=== PATIENT | male | born 1955 | race Caucasian/White ===

== ENCOUNTER 2019-04-19 14:10 | Emergency (ER) | payer MEDICARE, OTHER ==
[2019-04-19] MEDS ORDERED: KETOROLAC 30 MG/ML VIAL IVP STA (14:27)
[2019-04-19] MEDS ORDERED: ONDANSETRON 4 MG/2 ML VIAL IVP STA (14:27)
--- NOTE | 2019-04-19 14:32 | ED Physician Documentation ---
PD HPI ABD PAIN - Stated complaint Stated Complaint: ABD PX - Chief complaint Chief Complaint: Abd Pain - History obtained from History obtained from: Patient - History of Present Illness Timing - onset: Other (64 yo male with H/O remote cervical spine injury with some problems with sensation with about 6 days feeling "ooky" in low abdomen. Feels like there should be pain but can't describe it. Seen at an UC yesterday and told to come to ED for likely diverticulitis.) Review of Systems Ten Systems: 10 systems reviewed and negative Constitutional: denies: Fever, Chills Cardiac: denies: Chest pain / pressure, Palpitations Respiratory: denies: Dyspnea, Cough GI: reports: Abdominal Pain, Nausea. denies: Vomiting PD PAST MEDICAL HISTORY - Present Medications Home Medications: Ambulatory Orders Medication Instructions Recorded Confirmed Ciprofloxacin HCl [Cipro] 500 mg PO BID #20 tablet 04/19/19 Hydrocodone/Acetaminophen 1 - 2 each PO Q6H PRN #14 tablet 04/19/19 [Hydrocodon-Acetaminophen 5-325] Metronidazole [Flagyl] 500 mg PO TID #30 tablet 04/19/19 - Allergies Allergies/Adverse Reactions: Allergies Allergy/AdvReac Type Severity Reaction Status Date / Time No Known Drug Allergies Allergy Verified 04/19/19 14:16 PD ED PE NORMAL - Vitals Vital signs reviewed: Yes - General General: Alert and oriented X 3, No acute distress - HEENT HEENT: PERRL, EOMI - Neck Neck: Supple, no meningeal sign, No bony TTP, No bruit - Cardiac Cardiac: RRR, No murmur - Respiratory Respiratory: No respiratory distress, Clear bilaterally - Abdomen Abdomen: Other (TTP Low abd without surgical signs) - Back Back: No CVA TTP, No spinal TTP - Derm Derm: Normal color, Warm and dry - Neuro Neuro: Alert and oriented X 3, Normal speech - Psych Psych: Normal mood, Normal affect Results - Vitals Vitals: Vital Signs - 24 hr 04/19/19 14:13 Temperature 36.4 C L Heart Rate 70 Respiratory 18 Rate Blood Pressure 101/60 O2 Saturation 96 Oxygen O2 Source Room air - Labs Labs: Laboratory Tests 04/19/19 04/19/19 14:40 14:40 WBC 6.3 RBC 4.96 Hgb 16.1 Hct 48.6 MCV 98.0 H MCH 32.5 H MCHC 33.1 RDW 12.1 Plt Count 184 MPV 10.8 Neut # (Auto) 2.8 Lymph # (Auto) 2.8 [place] # (Auto) 0.5 Eos # (Auto) 0.1 Baso # (Auto) 0.1 Absolute Nucleated RBC 0.00 Nucleated RBC % 0.0 Sodium 139 Potassium 4.1 Chloride 101 Carbon Dioxide 27 Anion Gap 11.0 BUN 13 Creatinine 0.9 Estimated GFR (MDRD) 84 L Glucose 110 H Calcium 9.1 Total Bilirubin 0.8 AST 28 ALT 67 H Alkaline Phosphatase 72 Total Protein 6.4 L Albumin 3.8 Globulin 2.6 Albumin/Globulin Ratio 1.5 Lipase 49 - Rads (name of study) Ct A/P Radiology: EMP read contemporaneously (All, reviewed personally with the radiologist and felt he could have a very mild case of sigmoid diverticulitis which fits the clinical picture.) PD MEDICAL DECISION MAKING - ED course ED course: 64-year-old gentleman presents with signs and symptoms most consistent with acute diverticulitis. CT officially read as negative but when reviewed with the radiologist felt it might be a very mild case of same and is treated as such. Departure - Departure Disposition: 01 Home, Self Care Clinical Impression: Diverticulitis of gastrointestinal tract Condition: Good Record reviewed to determine appropriate education?: Yes Instructions: ED Diverticulitis Prescriptions: Ciprofloxacin HCl [Cipro] 500 mg PO BID #20 tablet Hydrocodone/Acetaminophen [Hydrocodon-Acetaminophen 5-325] 1 - 2 each PO Q6H PRN #14 tablet PRN Reason: pain Metronidazole [Flagyl] 500 mg PO TID #30 tablet Comments: As discussed he will need a follow-up colonoscopy in 6 to 8 weeks. Discuss this with your physician. Return for new or worsening symptoms or if not better in the next few days. Your blood pressure was elevated today on check into the emergency department. This does not mean that you have hypertension, it is a common phenomenon to come to the emergency department and have elevated blood pressure. I recommend that you see your primary care physician within the week to have it rechecked when you are feeling better. Do not drink or drive while taking narcotic pain medication. Note that many narcotic pain relievers also contain Tylenol/acetaminophen. Please ensure that your total dose of acetaminophen from all sources does not exceed 3 g (3000 mg) per day. You may get constipated while on this medication. Take a stool softener such as Colace twice a day while you are on it. Also add an [id number] laxative such as senna or MiraLAX on any day that you do not have a bowel movement. If you received a narcotic pain medication or sedative while in the emergency department, do not drive for the next 24 hours.
[2019-04-19] MEDS ORDERED: IOVERSOL 320 100 ML VIAL IVP ONE ×2 (14:41→17:41)
[2019-04-19 14:50] LABS: BASOPHILS # (AUTO) 0.1 10^3/uL (0.0-0.1); BASOPHILS % (AUTO) 1.3 %; EOSINOPHILS # (AUTO) 0.1 10^3/uL (0.0-0.7); EOSINOPHILS % (AUTO) 2.2 %; HGB - HEMOGLOBIN 16.1 g/dL (14.0-18.0); LYMPHOCYTES # (AUTO) 2.8 10^3/uL (1.5-3.5); LYMPHOCYTES % (AUTO) 44.2 %; MEAN CORPUSCULAR HEMOGLOBIN 32.5 pg (27.0-31.0); MEAN CORPUSCULAR HGB CONC 33.1 g/dL (32.0-36.0); MEAN PLATELET VOLUME 10.8 fL (7.4-11.4); MONOCYTES # (AUTO) 0.5 10^3/uL (0.0-1.0); MONOCYTES % (AUTO) 8.3 %; NEUTROPHILS # (AUTO) 2.8 10^3/uL (1.5-6.6); NEUTROPHILS % (AUTO) 43.7 %; PLT - PLATELET COUNT 184 10^3/uL (130-450); RED BLOOD COUNT 4.96 10^6/uL (4.70-6.10); RED CELL DISTRIBUTION WIDTH 12.1 % (12.0-15.0); WHITE BLOOD COUNT 6.3 x10^3/uL (4.8-10.8)
[2019-04-19 15:03] LABS: BILIRUBIN,TOTAL 0.8 mg/dL (0.2-1.0); CALCIUM 9.1 mg/dL (8.5-10.3); CREATININE 0.9 mg/dL (0.6-1.2)
[2019-04-19 15:04] LABS: ALBUMIN 3.8 g/dL (3.2-5.5); ALBUMIN/GLOBULIN RATIO 1.5 (1.0-2.2); TOTAL PROTEIN 6.4 g/dL (6.7-8.2)
--- NOTE | 2019-04-19 16:14 | CT Report ---
Reason: IV only, Low abd pain Procedure Date: 04/19/2019 Accession Number: [id number] / [id number] Procedure: CT - Abdomen/Pelvis W CPT Code: FULL RESULT: EXAM: CT ABDOMEN AND PELVIS WITH IV CONTRAST EXAM DATE: 04/19/2019 03:54 PM. CLINICAL HISTORY: IV only. Low abdominal pain. COMPARISONS: None. TECHNIQUE: Routine helical CT imaging was performed through the abdomen and pelvis. IV contrast: OPTI 320 100 mL. Enteric contrast: No. Reconstructions: Coronal and sagittal. In accordance with CT protocol optimization, one or more of the following dose reduction techniques were utilized for this exam: automated exposure control, adjustment of mA and/or KV based on patient size, or use of iterative reconstructive technique. FINDINGS: Lung Bases: Unremarkable. Liver: Normal. No masses. Gallbladder/Bile Ducts: Unremarkable. Spleen: Normal. Pancreas: Normal. Adrenal Glands: Normal. Kidneys: Normal. No masses or hydronephrosis. Peritoneal Cavity/Bowel: Normal. No free fluid, free air or adenopathy. No masses or acute inflammatory process. The appendix is well visualized and normal. Pelvic Organs: Normal. The bladder and visualized pelvic organs are within normal limits. Vasculature: Atherosclerotic aorta without focal infrarenal abdominal aortic aneurysm. Bones: No aggressive osseous lesions. Other: None. IMPRESSION: The etiology of the patient's abdominal pain is not delineated. RADIA
[2019-04-19 17:00] VITALS: BP 119/73
== END 2019-04-19 17:04 | disposition home or self-care (01) ==
LOC: ED 14:10
DX: K57.32 Diverticulitis of large intestine without perforation or abscess without bleeding (principal); R03.0 Elevated blood-pressure reading, without diagnosis of hypertension
CPT/HCPCS: 36415; 74177; 80053; 83690; 85025; 96374; 99283; 99284; Q9967

== ENCOUNTER 2019-04-24 13:53 | Emergency (ER) | payer MEDICARE, OTHER ==
--- NOTE | 2019-04-24 14:53 | ED Physician Documentation ---
PD HPI ABD PAIN - Stated complaint Stated Complaint: ABD PX - Chief complaint Chief Complaint: Abd Pain - History obtained from History obtained from: Patient - History of Present Illness Timing - onset: Other (64-year-old gentleman with history of incomplete spinal cord injury who I saw 5 days ago for abdominal pain, no real obvious findings but diagnosed presumptively with diverticulitis based on the character of the pain and location as well as discussions with the radiologist for which she was placed on antibiotics. Since then the pain is somewhat worse kind of diffuse but not otherwise radiating. He is had some loose stools without overt diarrhea, there was some blood-tinged to 1 of the stools yesterday. No fevers or chills. Of note his blood pressure in triage was low but this was im mediately rechecked in the room and back to normal.) Review of Systems Ten Systems: 10 systems reviewed and negative Constitutional: denies: Fever, Chills GI: reports: Abdominal Pain. denies: Nausea, Vomiting, Diarrhea : denies: Dysuria, Frequency PD PAST MEDICAL HISTORY - Past Medical History Cardiovascular: Hypertension - Past Surgical History Past Surgical History: No - Present Medications Home Medications: Ambulatory Orders Medication Instructions Recorded Confirmed Ciprofloxacin HCl [Cipro] 500 mg PO BID #20 tablet 04/19/19 Hydrocodone/Acetaminophen 1 - 2 each PO Q6H PRN #14 tablet 04/19/19 [Hydrocodon-Acetaminophen 5-325] Metronidazole [Flagyl] 500 mg PO TID #30 tablet 04/19/19 Dicyclomine [Bentyl] 20 mg PO QID PRN #15 capsule 04/24/19 Oxycodone HCl/Acetaminophen 1 - 2 each PO Q6H PRN #14 tablet 04/24/19 [Percocet 5-325 mg Tablet] - Allergies Allergies/Adverse Reactions: Allergies Allergy/AdvReac Type Severity Reaction Status Date / Time No Known Drug Allergies Allergy Verified 04/24/19 14:23 - Social History Does the pt smoke?: No Smoking Status: Never smoker Does the pt drink ETOH?: Yes Does the pt have substance abuse?: No - Immunizations Immunizations are current?: Yes - POLST Patient has POLST: No PD ED PE NORMAL - Vitals Vital signs reviewed: Yes - General General: Alert and oriented X 3, No acute distress - HEENT HEENT: PERRL, EOMI - Neck Neck: Supple, no meningeal sign, No bony TTP - Cardiac Cardiac: RRR, No murmur - Respiratory Respiratory: No respiratory distress, Clear bilaterally - Abdomen Abdomen: Normal bowel sounds, Soft, Non tender - Back Back: No CVA TTP, No spinal TTP - Derm Derm: Normal color, Warm and dry, No rash - Neuro Neuro: Alert and oriented X 3, Normal speech Results - Vitals Vitals: Vital Signs - 24 hr 04/24/19 04/24/19 04/24/19 14:25 14:58 17:30 Temperature 36.9 C Heart Rate 71 59 L 55 L Respiratory 18 15 10 L Rate Blood Pressure 76/40 L 107/69 161/97 H O2 Saturation 96 93 97 Oxygen O2 Source Room air - EKG (time done) 1446 Rate: Rate (enter#) (59) Rhythm: NSR, LAE [place]: Normal Intervals: Normal [place] QRS: Normal Ischemia: Normal ST segments Computer interpretation: Agree with computer - Labs Labs: Laboratory Tests 04/24/19 04/24/19 04/24/19 14:51 14:51 14:51 WBC 7.9 RBC 5.04 Hgb 16.4 Hct 49.0 MCV 97.2 H MCH 32.5 H MCHC 33.5 RDW 12.2 Plt Count 179 MPV 10.9 Neut # (Auto) 5.3 Lymph # (Auto) 2.0 [place] # (Auto) 0.4 Eos # (Auto) 0.1 Baso # (Auto) 0.1 Absolute Nucleated RBC 0.00 Nucleated RBC % 0.0 Sodium 142 Potassium 4.0 Chloride 103 Carbon Dioxide 25 Anion Gap 14.0 H BUN 15 Creatinine 0.9 Estimated GFR (MDRD) 84 L Glucose 144 H Lactic Acid Calcium 9.2 Total Bilirubin 1.1 H AST 40 ALT 65 H Alkaline Phosphatase 56 Troponin I High Sens 6.2 Total Protein 6.5 L Albumin 3.9 Globulin 2.6 Albumin/Globulin Ratio 1.5 Lipase 30 Urine Color Urine Clarity Urine pH Ur Specific [place] Urine Protein Urine Glucose (UA) Urine Ketones Urine Occult Blood Urine Nitrite Urine Bilirubin Urine Urobilinogen Ur Leukocyte Esterase Ur Microscopic Review Urine Culture Comments 04/24/19 04/24/19 14:51 16:15 WBC RBC Hgb Hct MCV MCH MCHC RDW Plt Count MPV Neut # (Auto) Lymph # (Auto) [place] # (Auto) Eos # (Auto) Baso # (Auto) Absolute Nucleated RBC Nucleated RBC % Sodium Potassium Chloride Carbon Dioxide Anion Gap BUN Creatinine Estimated GFR (MDRD) Glucose Lactic Acid 1.7 Calcium Total Bilirubin AST ALT Alkaline Phosphatase Troponin I High Sens Total Protein Albumin Globulin Albumin/Globulin Ratio Lipase Urine Color YELLOW Urine Clarity CLEAR Urine pH 5.5 Ur Specific [place] 1.010 Urine Protein NEGATIVE Urine Glucose (UA) NEGATIVE Urine Ketones NEGATIVE Urine Occult Blood NEGATIVE Urine Nitrite NEGATIVE Urine Bilirubin NEGATIVE Urine Urobilinogen 0.2 (NORMAL) Ur Leukocyte Esterase NEGATIVE Ur Microscopic Review NOT INDICATED Urine Culture Comments NOT INDICATED - Rads (name of study) CT A/P Radiology: EMP read contemporaneously (Stable congenital partial malrotation, otherwise no acute disease although I did call the radiologist noting potentially thickened small bowel and left upper quadrant and he was equivocal about it. At most this would probably represent an enteritis.) Abd sono Radiology: EMP read contemporaneously (NAD) PD MEDICAL DECISION MAKING - ED course ED course: This is a 64-year-old gentleman with remote partial spinal cord injury returning again with belly pain. Soft call of diverticulitis recently treated with antibiotics. Persistent discomfort but benign examination without surgical signs. 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 He remained stable through his visit here. Of note when he checked and he had a single low blood pressure which was never corroborated on subsequent readings. Departure - Departure Disposition: 01 Home, Self Care Clinical Impression: Abdominal pain Condition: Good Record reviewed to determine appropriate education?: Yes Instructions: ED Abdominal Pain Unkn Cause Male Prescriptions: Dicyclomine [Bentyl] 20 mg PO QID PRN #15 capsule PRN Reason: Abdominal Pain Oxycodone HCl/Acetaminophen [Percocet 5-325 mg Tablet] 1 - 2 each PO Q6H PRN #14 tablet PRN Reason: pain Comments: As discussed you need follow-up colonoscopy within a couple of months, return for new or worsening symptoms. Follow-up with your doctor, next available a ppointment.
[2019-04-24 15:03] LABS: BASOPHILS # (AUTO) 0.1 10^3/uL (0.0-0.1); BASOPHILS % (AUTO) 0.9 %; EOSINOPHILS # (AUTO) 0.1 10^3/uL (0.0-0.7); EOSINOPHILS % (AUTO) 0.9 %; HGB - HEMOGLOBIN 16.4 g/dL (14.0-18.0); LYMPHOCYTES % (AUTO) 25.5 %; MEAN CORPUSCULAR HEMOGLOBIN 32.5 pg (27.0-31.0); MEAN CORPUSCULAR HGB CONC 33.5 g/dL (32.0-36.0); MEAN CORPUSCULAR VOLUME 97.2 fL (80.0-94.0); MEAN PLATELET VOLUME 10.9 fL (7.4-11.4); MONOCYTES # (AUTO) 0.4 10^3/uL (0.0-1.0); MONOCYTES % (AUTO) 5.6 %; NEUTROPHILS # (AUTO) 5.3 10^3/uL (1.5-6.6); NEUTROPHILS % (AUTO) 66.8 %; PLT - PLATELET COUNT 179 10^3/uL (130-450); RED BLOOD COUNT 5.04 10^6/uL (4.70-6.10); RED CELL DISTRIBUTION WIDTH 12.2 % (12.0-15.0); WHITE BLOOD COUNT 7.9 x10^3/uL (4.8-10.8)
[2019-04-24 15:16] LABS: ALBUMIN 3.9 g/dL (3.2-5.5); ALBUMIN/GLOBULIN RATIO 1.5 (1.0-2.2); BILIRUBIN,TOTAL 1.1 mg/dL (0.2-1.0); CALCIUM 9.2 mg/dL (8.5-10.3); CREATININE 0.9 mg/dL (0.6-1.2); TOTAL PROTEIN 6.5 g/dL (6.7-8.2)
[2019-04-24] MEDS ORDERED: SODIUM CHLORIDE 0.9% 1,000 ML IV ONE (15:25)
[2019-04-24 16:27] LABS: BILIRUBIN,URINE NEGATIVE (NEGATIVE); GLUCOSE, URINE (UA) NEGATIVE (NEGATIVE); KETONES,URINE (UA) NEGATIVE (NEGATIVE); LEUKOCYTE ESTERASE, URINE NEGATIVE (NEGATIVE); NITRITE,URINE NEGATIVE (NEGATIVE); OCCULT BLOOD,URINE NEGATIVE (NEGATIVE); PH,URINE 5.5 PH (5.0-7.5); PROTEIN,URINE NEGATIVE (NEGATIVE); UROBILINOGEN,URINE 0.2 (NORMAL) E.U./dL (NORMAL)
[2019-04-24 16:52] LABS: CLARITY,URINE CLEAR (CLEAR)
[2019-04-24] MEDS ORDERED: IOVERSOL 320 100 ML VIAL IVP ONE ×2 (17:15→17:42)
--- NOTE | 2019-04-24 17:24 | Ultrasound Report ---
Reason: abd pain Procedure Date: 04/24/2019 Accession Number: [id number] / [id number] Procedure: US - Abdomen Limited CPT Code: FULL RESULT: EXAM: ABDOMEN ULTRASOUND LIMITED, RUQ EXAM DATE: 04/24/2019 04:55 PM. CLINICAL HISTORY: Abd pain. COMPARISON: ABDOMEN/PELVIS W/ 04/19/2019 3:50 PM. TECHNIQUE: Real-time scanning was performed with static images obtained. FINDINGS: Liver: No focal lesion. Left lobe of liver not well seen. 18.2 cm. Main portal vein flow: Hepatopetal. Gallbladder: Normal. No stones, wall thickening, or sonographic Tamayo's sign. Biliary System: CBD measures 4 mm. No intrahepatic or extrahepatic ductal dilatation. Other: Right kidney measures 12.1 cm in length. No hydronephrosis. IMPRESSION: No ultrasound abnormality to explain abdominal pain. RADIA
--- NOTE | 2019-04-24 18:00 | CT Report ---
Reason: IV only continued abd pain Procedure Date: 04/24/2019 Accession Number: [id number] / [id number] Procedure: CT - Abdomen/Pelvis W CPT Code: FULL RESULT: EXAM: CT ABDOMEN AND PELVIS EXAM DATE: 04/24/2019 05:30 PM. CLINICAL HISTORY: Continued abdominal pain COMPARISONS: ABDOMEN/PELVIS W/ 04/19/2019 3:50 PM. TECHNIQUE: Routine helical CT imaging was performed through the abdomen and pelvis. IV contrast: OPTI 320 100ML. Enteric contrast: No. Reconstructions: Coronal and sagittal. In accordance with CT protocol optimization, one or more of the following dose reduction techniques were utilized for this exam: automated exposure control, adjustment of mA and/or KV based on patient size, or use of iterative reconstructive technique. FINDINGS: Lung Bases: Unremarkable. Liver: Liver parenchyma is low in density. No focal liver lesion. Liver size is normal. Liver vessels are patent. Gallbladder/Bile Ducts: Unremarkable. Spleen: Normal. Pancreas: Normal. Adrenal Glands: Normal. Kidneys: Normal. No masses or hydronephrosis. Peritoneal Cavity/Bowel: There is partial malrotation of colon. The cecum is located in the anterior right upper quadrant of the abdomen. The entire colon is located in the right abdomen. Ligament of Treitz and proximal jejunum located in normal position. No dilated bowel loops or transition zone. No free fluid or free air. The appendix is well visualized and normal. Pelvic Organs: Urinary bladder appears unremarkable. Vasculature: There is moderate calcification of the abdominal aorta and iliac arteries. No aneurysm. Bones: No significant abnormality. Other: None. IMPRESSION: 1. No localizing acute inflammatory process in the abdomen or pelvis. 2. Malrotation of the colon appears unchanged. 3. Steatosis of liver. 4. Otherwise unremarkable. RADIA
[2019-04-24] MEDS ORDERED: DICYCLOMINE 10 MG CAPSULE PO STA (18:11)
[2019-04-24 18:22] VITALS: BP 174/84
== END 2019-04-24 18:26 | disposition home or self-care (01) ==
LOC: ED 13:53
DX: R10.84 Generalized abdominal pain (principal); I10 Essential (primary) hypertension
CPT/HCPCS: 36415; 74177; 76705; 80053; 81003; 83605; 83690; 85025; 96360; 96361; 99284; A9270; Q9967; 81001; 87086; 93005

== ENCOUNTER 2020-07-01 14:55 | Outpatient (CLI) | payer MEDICARE, OTHER ==
--- NOTE | 2020-07-01 17:32 | XRAY Report ---
PROCEDURE: Cervical Spine 2 View INDICATIONS: HYPEREXTENSION, HX OF SPINAL FUSION C4-C6 TECHNIQUE: 3 view(s) of the cervical spine were acquired. COMPARISON: None. FINDINGS: Bones: No fractures or dislocations to the T1 level. There are surgical changes of lower cervical f usion with posterior hardware, posterior cerclage wire, and vertebral body cage placement, all of whi ch appear intact. Upper cervical vertebral bodies are normally aligned. There are degenerative change s in the facet joints at the C2-3 level, and anteriorly at the atlantodental interval. The lateral ma sses of C1 appear intact on the odontoid view. No suspicious bony lesions. Soft tissues: No prevertebral soft tissue swelling. Bilateral carotid artery calcification. IMPRESSION: 1. No visible osseous or hardware fracture. 2. Surgical changes throughout the lower cervical spine appear intact. Reviewed by: Davida Carl MD on 07/01/2020 5:31 PM PDT Approved by: Davida Carl MD on 07/01/2020 5:31 PM PDT Station ID: [id number]
== END 2020-07-01 14:56 | disposition home or self-care (01) ==
LOC: DI 14:55
PROVIDERS: ATTEND Physician Assistant
DX: M54.2 Cervicalgia (principal); R25.2 Cramp and spasm; S19.9XXA Unspecified injury of neck, initial encounter
CPT/HCPCS: 72040

== ENCOUNTER 2020-10-25 12:02 | Emergency (ER) | payer MEDICARE, OTHER ==
[2020-10-25] MEDS ORDERED: SODIUM CHLORIDE 0.9% 1,000 ML IV STA (12:36)
[2020-10-25 13:08] LABS: BASOPHILS # (AUTO) 0.1 10^3/uL (0.0-0.1); BASOPHILS % (AUTO) 0.6 %; EOSINOPHILS # (AUTO) 0.1 10^3/uL (0.0-0.7); EOSINOPHILS % (AUTO) 0.6 %; HGB - HEMOGLOBIN 14.9 g/dL (14.0-18.0); LYMPHOCYTES # (AUTO) 2.5 10^3/uL (1.5-3.5); LYMPHOCYTES % (AUTO) 28.9 %; MEAN CORPUSCULAR HEMOGLOBIN 33.1 pg (27.0-31.0); MEAN CORPUSCULAR HGB CONC 33.6 g/dL (32.0-36.0); MEAN CORPUSCULAR VOLUME 98.7 fL (80.0-94.0); MEAN PLATELET VOLUME 11.1 fL (7.4-11.4); MONOCYTES # (AUTO) 0.7 10^3/uL (0.0-1.0); MONOCYTES % (AUTO) 8.2 %; NEUTROPHILS # (AUTO) 5.2 10^3/uL (1.5-6.6); NEUTROPHILS % (AUTO) 61.6 %; PLT - PLATELET COUNT 142 10^3/uL (130-450); RED CELL DISTRIBUTION WIDTH 12.3 % (12.0-15.0); WHITE BLOOD COUNT 8.5 x10^3/uL (4.8-10.8)
[2020-10-25 13:23] LABS: ALBUMIN 3.8 g/dL (3.2-5.5); ALBUMIN/GLOBULIN RATIO 1.4 (1.0-2.2); BILIRUBIN,TOTAL 1.1 mg/dL (0.2-1.0); CALCIUM 8.8 mg/dL (8.5-10.3); CREATININE 0.8 mg/dL (0.6-1.2); TOTAL PROTEIN 6.6 g/dL (6.7-8.2)
--- NOTE | 2020-10-25 13:50 | ED Physician Documentation ---
History of Present Illness - Stated complaint Stated Complaint: MALE - Chief complaint Chief Complaint: Abd Pain - Additonal information Additional information: 65-year-old male presents to the emergency department for evaluation of right lower quadrant abdominal pain as well as streaking of his stool with blood. He does have a history of an incomplete spinal cord injury at the C4-C5 level. He often has to use an enema at home to promote a bowel movement. 3 days ago he used an enema as he typically does which is when his abdominal pain began. Since then he has noted that he has had some pain in the rectal area. He does report a history of diverticulitis. He has had no recent fevers or vomiting. He denies that he has diarrhea but states his stool has been looser than normal with stranding of blood in it. No previous past surgical history. Review of Systems Constitutional: reports: Reviewed and negative Eyes: reports: Reviewed and negative Ears: reports: Reviewed and negative Nose: reports: Reviewed and negative Throat: reports: Reviewed and negative Cardiac: reports: Reviewed and negative Respiratory: reports: Reviewed and negative GI: reports: Abdominal Pain, Bloody / black stool. denies: Nausea, Vomiting, Constipation, Diarrhea, Hematemesis : reports: Reviewed and negative Skin: reports: Reviewed and negative Musculoskeletal: reports: Reviewed and negative PD PAST MEDICAL HISTORY - Past Medical History Cardiovascular: Hypertension - Past Surgical History Past Surgical History: No - Present Medications Home Medications: Ambulatory Orders Medication Instructions Recorded Confirmed Baclofen 10/25/20 FLUoxetine [PROzac] 10/25/20 Gabapentin [Neurontin] 800 mg PO 10/25/20 Sulfamethox/Trimeth 800/160 1 each PO BID #14 tablet 10/25/20 [Bactrim Ds 800/160] Tamsulosin [Flomax] 10/25/20 polyethylene glycoL 3350 [Miralax] 17 gm PO DAILY PRN #1 bottle 10/25/20 - Allergies Allergies/Adverse Reactions: Allergies Allergy/AdvReac Type Severity Reaction Status Date / Time No Known Drug Allergies Allergy Verified 10/25/20 12:06 - Social History Does the pt smoke?: No Smoking Status: Never smoker Does the pt drink ETOH?: Yes Does the pt have substance abuse?: No - Immunizations Immunizations are current?: Yes - POLST Patient has POLST: No PD ED PE EXPANDED - General General: Alert, No acute distress, Well developed/nourished - Cardiac Cardiac: Regular Rate, Regular Rhythm, Radial strong equal, Pedal strong equal, Cap refill < 2 sec - Respiratory Respiratory: Clear to ausultation kinza. No: Distress, Labored - Abdomen Abdomen: Normal Bowel sounds, Tender to palpation (Tenderness to the right lower quadrant without guarding or rebound.) - Rectal Rectal: Hemorrhoid (Nonthrombosed internal hemorrhoid which is able to be reduced.). No: Normal Tone - Back Back: No: Vertebral tenderness - GCS Eye Opening: Spontaneous Motor: Obeys Commands Verbal: Oriented Total: 15 Results - Vitals Vitals: Vital Signs - 24 hr 10/25/20 10/25/20 12:06 14:36 Temperature 36.6 C 36.9 C Heart Rate 69 61 Respiratory 16 18 Rate Blood Pressure 144/64 H 170/88 H O2 Saturation 100 98 Oxygen O2 Source Room air - Labs Labs: Laboratory Tests 10/25/20 10/25/20 10/25/20 12:40 12:40 13:00 WBC 8.5 RBC 4.50 L Hgb 14.9 Hct 44.4 MCV 98.7 H MCH 33.1 H MCHC 33.6 RDW 12.3 Plt Count 142 MPV 11.1 Neut # (Auto) 5.2 Lymph # (Auto) 2.5 [place] # (Auto) 0.7 Eos # (Auto) 0.1 Baso # (Auto) 0.1 Absolute Nucleated RBC 0.00 Nucleated RBC % 0.0 Sodium 141 Potassium 3.9 Chloride 106 Carbon Dioxide 23 Anion Gap 12.0 BUN 19 Creatinine 0.8 Estimated GFR (MDRD) 96 Glucose 117 H Lactic Acid 1.0 Calcium 8.8 Total Bilirubin 1.1 H AST 19 ALT 19 Alkaline Phosphatase 58 Total Protein 6.6 L Albumin 3.8 Globulin 2.8 Albumin/Globulin Ratio 1.4 Lipase 34 Urine Color Urine Clarity Urine pH Ur Specific [place] Urine Protein Urine Glucose (UA) Urine Ketones Urine Occult Blood Urine Nitrite Urine Bilirubin Urine Urobilinogen Ur Leukocyte Esterase Ur Microscopic Review Urine Culture Comments 10/25/20 13:48 WBC RBC Hgb Hct MCV MCH MCHC RDW Plt Count MPV Neut # (Auto) Lymph # (Auto) [place] # (Auto) Eos # (Auto) Baso # (Auto) Absolute Nucleated RBC Nucleated RBC % Sodium Potassium Chloride Carbon Dioxide Anion Gap BUN Creatinine Estimated GFR (MDRD) Glucose Lactic Acid Calcium Total Bilirubin AST ALT Alkaline Phosphatase Total Protein Albumin Globulin Albumin/Globulin Ratio Lipase Urine Color YELLOW Urine Clarity CLEAR Urine pH 7.0 Ur Specific [place] 1.015 Urine Protein NEGATIVE Urine Glucose (UA) NEGATIVE Urine Ketones TRACE Urine Occult Blood NEGATIVE Urine Nitrite NEGATIVE Urine Bilirubin NEGATIVE Urine Urobilinogen 0.2 (NORMAL) Ur Leukocyte Esterase NEGATIVE Ur Microscopic Review NOT INDICATED Urine Culture Comments NOT INDICATED - Rads (name of study) CT abd Radiology: Final report received (Thickening and mural enhancement of the lower rectum. Most compatible with infectious/inflammatory proctitis. Diverticulosis without diverticulitis. Normal appendix. ) PD MEDICAL DECISION MAKING - ED course Complexity details: reviewed results, considered differential, d/w patient ED course: 65-year-old male has a history of incomplete C4 spinal cord injury presents to the emergency department with right-sided abdominal pain and rectal pain. He reports that he often has to give himself an enema in order to promote adequate bowel movement. He did this 4 days ago and has had pain in the rectal area since. On initial exam he had a nonthrombosed hemorrhoid that was reduced. However given the location of the right-sided belly pain we did proceed to do a CT of the abdomen and pelvis. It does not show acute appendicitis or diverticulitis however there are findings consistent with proctitis. This most likely stems from recurrent enema use. This gentleman will be placed on Bactrim twice daily for 10 days. I will also recommend this gentleman begin taking MiraLAX so that he can avoid needing to give himself enemas while this proctitis heals. He is to schedule close follow- up with his primary care doctor for reevaluation. If not improved he will return to the emergency department. Departure - Departure Disposition: 01 Home, Self Care Clinical Impression: Prostatitis Qualifiers: Prostatitis type: acute Qualified Code(s): N41.0 - Acute prostatitis Condition: Stable Record reviewed to determine appropriate education?: Yes Prescriptions: Sulfamethox/Trimeth 800/160 [Bactrim Ds 800/160] 1 each PO BID #14 tablet polyethylene glycoL 3350 [Miralax] 17 gm PO DAILY PRN #1 bottle PRN Reason: Constipation Comments: Jimmy the CT scan of your abdomen shows that you have developed proctitis. This is inflammation of the rectal area. This is most likely due to the need to give yourself an enema in order to promote a bowel movement. I would like to start you on an antibiotic. Bactrim take it twice daily for 10 days. In order to avoid needing to use an enema I would also like you to take MiraLAX. With the antibiotics I would expect that your pain is improving over the next 2 to 3 days. If not improving, you have fevers or worsening pain please return immediately to the ER. Please schedule an appointment to follow-up with your primary care doctor in 7 to 10 days. In the long-term you may need referral or long-term evaluation by a perirectal surgeon.
[2020-10-25 13:58] LABS: BILIRUBIN,URINE NEGATIVE (NEGATIVE); GLUCOSE, URINE (UA) NEGATIVE (NEGATIVE); KETONES,URINE (UA) TRACE mg/dL (NEGATIVE); LEUKOCYTE ESTERASE, URINE NEGATIVE (NEGATIVE); NITRITE,URINE NEGATIVE (NEGATIVE); OCCULT BLOOD,URINE NEGATIVE (NEGATIVE); PROTEIN,URINE NEGATIVE (NEGATIVE); UROBILINOGEN,URINE 0.2 (NORMAL) E.U./dL (NORMAL)
[2020-10-25 14:00] LABS: CLARITY,URINE CLEAR (CLEAR)
[2020-10-25] MEDS ORDERED: IOVERSOL 320 100 ML VIAL IVP ONE ×2 (14:03→14:08)
--- NOTE | 2020-10-25 14:33 | CT Report ---
PROCEDURE: Abdomen/Pelvis W INDICATIONS: bloody stool; RLQ abd pain CONTRAST: IV CONTRAST: Optiray 320 ml: 100 PO CONTRAST: *NO PO CONTRAST TECHNIQUE: After the administration of IV contrast, 5 mm thick sections acquired from the diaphragms to the symp hysis. 5 mm thick coronal and sagittal reformats were acquired. For radiation dose reduction, the f ollowing was used: automated exposure control, adjustment of mA and/or kV according to patient size. COMPARISON: CT abdomen and pelvis 04/24/2019. FINDINGS: Image quality: Excellent. ABDOMEN: Lung bases: Lung bases are clear. Heart size is within normal limits. Aortic valvular calcification . Solid organs: Liver is normal in size. Suspect hepatic steatosis. No focal lesion seen. Gallbladder is unremarkable Biliary system is non dilated. Pancreas enhances normally. No splenomegaly. No ad renal nodules. Kidneys demonstrate normal size and enhancement, without hydronephrosis. Right kidney inferior pole nonobstructing calculus measuring 5 mm, (34). Peritoneum and bowel: Stomach is not distended. Small hiatal hernia. No small bowel obstruction. The third portion the duodenum is anterior to the pancreas, where it should be posterior. The colon is m alrotated as before. Colon is not seen in the left abdomen. A few scattered colonic diverticuli. Norm al appendix. The lower rectum demonstrates mural enhancement and thickening which is not seen on the prior exam, ( ). No free fluid or air. Nodes and vessels: No retroperitoneal or mesenteric adenopathy by size criteria. No abdominal aortic aneurysm. Mild ectasia. Extensive calcified plaque. The SMA is to the right of the SMV, reverse rela tionship. Duplicated right renal artery. Miscellaneous: No ventral hernias. PELVIS: Genitourinary: Bladder wall thickness is normal. Prostate calcification. Miscellaneous: No inguinal hernias or adenopathy. Bones: No suspicious bony lesions. No vertebral body compression fractures. Right hip DJD. IMPRESSION: 1. Thickening and mural enhancement of the lower rectum. This is most compatible with an infectious/i nflammatory proctitis. -Follow-up colonoscopy if not recently performed may be helpful for further evaluation. 2. Diverticulosis without diverticulitis. 3. Normal appendix. 4. Small bowel and colonic malrotation. 5. Hepatic steatosis. Reviewed by: Reginaldo Travis MD on 10/25/2020 2:32 PM PST Approved by: Reginaldo Travis MD on 10/25/2020 2:32 PM PST Station ID: [id number]
[2020-10-25 15:27] VITALS: BP 167/85
== END 2020-10-25 15:33 | disposition home or self-care (01) ==
LOC: ED 12:02
DX: N41.0 Acute prostatitis (principal); K64.8 Other hemorrhoids
CPT/HCPCS: 36415; 74177; 80053; 81003; 83605; 83690; 85025; 99284; Q9967; 81001; 87086

== ENCOUNTER 2020-10-28 08:43 | Outpatient (CLI) | payer OTHER ==
--- NOTE | 2020-10-28 16:05 | Ultrasound Report ---
PROCEDURE: Retroperitoneal Limited INDICATIONS: AAA 6 MO F U TECHNIQUE: Real-time scanning was performed of the retroperitoneal organs, with image documentation. COMPARISON: CT abdomen pelvis 10/25/2020, ultrasound abdomen 11/28/2019, report only, no images are josiane ilable. FINDINGS: Aorta demonstrates calcified plaque throughout its course. It measures 2.7 x 2.8 cm, 1.9 x 2.1 cm and 2.7 x 2.7 cm within the proximal, mid and distal portions respectively. The right common iliac arter y measures 1.0 x 1.0 cm and the left common iliac artery measures 1.1 x 1.1 cm. IMPRESSION: 1. No aneurysmal dilation on current exam or CT of 10/25/2020. Ectasia/mild aneurysmal dilation identi fied on port of abdominal ultrasound of 11/27/2019 is not visualized on current exam. If images becom e available, they will be compared and an addendum issued. Reviewed by: Edith Nunez MD on 10/28/2020 4:04 PM PST Approved by: Edith Nunez MD on 10/28/2020 4:04 PM PST Station ID: [id number]
== END 2020-10-28 08:44 | disposition home or self-care (01) ==
LOC: DI 08:43
PROVIDERS: ATTEND Physical Medicine & Rehabilitation Spinal Cord Injury Medicine
DX: Z13.6 Encounter for screening for cardiovascular disorders (principal)

== ENCOUNTER 2021-02-06 12:24 | Outpatient (CLI) | payer MEDICARE, OTHER | END 2021-02-06 12:25 | disposition home or self-care (01) | LOC: CAM 12:24 | PROVIDERS: ATTEND Physical Medicine & Rehabilitation Spinal Cord Injury Medicine | DX: G82.52 Quadriplegia, C1-C4 incomplete (principal) | CPT/HCPCS: 97810; 97811 ==

== ENCOUNTER 2021-02-13 13:23 | Outpatient (CLI) | payer MEDICARE, OTHER | END 2021-02-13 13:24 | disposition home or self-care (01) | LOC: CAM 13:23 | PROVIDERS: ATTEND Physical Medicine & Rehabilitation Spinal Cord Injury Medicine | DX: G82.52 Quadriplegia, C1-C4 incomplete (principal) | CPT/HCPCS: 97813; 97814 ==

== ENCOUNTER 2021-04-23 19:30 | Emergency (ER) | payer MEDICARE, OTHER ==
[2021-04-23 20:19] LABS: BILIRUBIN,URINE NEGATIVE (NEGATIVE); GLUCOSE, URINE (UA) NEGATIVE (NEGATIVE); KETONES,URINE (UA) TRACE mg/dL (NEGATIVE); LEUKOCYTE ESTERASE, URINE NEGATIVE (NEGATIVE); NITRITE,URINE NEGATIVE (NEGATIVE); OCCULT BLOOD,URINE NEGATIVE (NEGATIVE); PROTEIN,URINE TRACE mg/dL (NEGATIVE); UROBILINOGEN,URINE 0.2 (NORMAL) E.U./dL (NORMAL)
[2021-04-23 20:20] LABS: CLARITY,URINE CLEAR (CLEAR)
[2021-04-23] MEDS ORDERED: SODIUM CHLORIDE 0.9% 1,000 ML IV STA (20:37)
--- NOTE | 2021-04-23 20:41 | ED Physician Documentation ---
History of Present Illness - Stated complaint Stated Complaint: MALE - Chief complaint Chief Complaint: Abd Pain - History obtained from History obtained from: Patient - Additonal information Additional information: 66yM with pmh prostatitis back in October 2020 p/w similar symptoms today , suprapubic pain radiating up the midabdomen, aching, constant, worse with urination/defecation, mild/moderate severity. 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 also with hemorrhoids. denies fever, back pain, nausea. Review of Systems Ten Systems: 10 systems reviewed and negative Constitutional: denies: Fever, Chills GI: reports: Abdominal Pain, Constipation. denies: Nausea : reports: Dysuria PD PAST MEDICAL HISTORY - Past Medical History Cardiovascular: Hypertension - Past Surgical History Past Surgical History: No - Present Medications Home Medications: Ambulatory Orders Medication Instructions Recorded Confirmed Baclofen 10/25/20 FLUoxetine [PROzac] 10/25/20 Gabapentin [Neurontin] 800 mg PO 10/25/20 Sulfamethox/Trimeth 800/160 1 each PO BID #14 tablet 10/25/20 [Bactrim Ds 800/160] Tamsulosin [Flomax] 10/25/20 polyethylene glycoL 3350 [Miralax] 17 gm PO DAILY PRN #1 bottle 10/25/20 - Allergies Allergies/Adverse Reactions: Allergies Allergy/AdvReac Type Severity Reaction Status Date / Time No Known Drug Allergies Allergy Verified 04/23/21 19:46 - Social History Does the pt smoke?: No Smoking Status: Never smoker Does the pt drink ETOH?: Yes Does the pt have substance abuse?: No - Immunizations Immunizations are current?: Yes - POLST Patient has POLST: No PD ED PE NORMAL - Vitals Vital signs reviewed: Yes - General General: Alert and oriented X 3, No acute distress, Well developed/nourished - HEENT HEENT: Atraumatic, PERRL, EOMI - Neck Neck: Supple, no meningeal sign - Cardiac Cardiac: RRR - Respiratory Respiratory: No respiratory distress, Clear bilaterally - Abdomen Abdomen: Non tender, Non distended, Other (discomfort to suprapubic palpation) - Male Male : Waitress present (tech Neyda), Other (+external nonthrombosed hemorrhoids. prostate discomfort with palpation. hard pebble like consistency to R posterior aspect.) - Back Back: No CVA TTP - Derm Derm: Normal color - Neuro Neuro: Alert and oriented X 3 - Psych Psych: Normal mood, Normal affect Results - Vitals Vitals: Vital Signs - 24 hr 04/23/21 19:41 Temperature 36.5 C Heart Rate 58 L Respiratory 14 Rate Blood Pressure 94/71 O2 Saturation 97 Oxygen O2 Source Room air - Labs Labs: Laboratory Tests 04/23/21 04/23/21 04/23/21 20:01 20:43 20:43 WBC 6.6 RBC 4.50 L Hgb 14.9 Hct 44.7 MCV 99.3 H MCH 33.1 H MCHC 33.3 RDW 12.3 Plt Count 151 MPV 11.0 Neut # (Auto) 2.4 Lymph # (Auto) 3.3 [place] # (Auto) 0.7 Eos # (Auto) 0.2 Baso # (Auto) 0.1 Absolute Nucleated RBC 0.00 Nucleated RBC % 0.0 Sodium 136 Potassium 4.3 Chloride 102 Carbon Dioxide 27 Anion Gap 7.0 BUN 15 Creatinine 0.9 Estimated GFR (MDRD) 84 L Glucose 109 H Calcium 8.4 L Total Bilirubin 0.9 AST 21 ALT 27 Alkaline Phosphatase 70 Total Protein 5.9 L Albumin 3.8 Globulin 2.1 Albumin/Globulin Ratio 1.8 Lipase 35 Urine Color DARK YELLOW Urine Clarity CLEAR Urine pH 7.0 Ur Specific Lafe 1.020 Urine Protein TRACE Urine Glucose (UA) NEGATIVE Urine Ketones TRACE Urine Occult Blood NEGATIVE Urine Nitrite NEGATIVE Urine Bilirubin NEGATIVE Urine Urobilinogen 0.2 (NORMAL) Ur Leukocyte Esterase NEGATIVE Ur Microscopic Review NOT INDICATED Urine Culture Comments NOT INDICATED PD MEDICAL DECISION MAKING - ED course ED course: d/w patient need to f/u with pmd in regards to prostate abnormality. will need reexamination by PMD for prostate CA screening. Workup otherwise unremarkable. return precautions given. Departure - Departure Disposition: 01 Home, Self Care Clinical Impression: Abdominal pain Instructions: ED Abdominal Pain Unkn Cause Comments: You are seen in the emergency department for evaluation of abdominal pain and pain with Urination and defecation. Your urinalysis was normal, blood work was normal, and CT was normal. You do need to follow-up with your primary doctor because your prostate exam uncovered a pebble-like consistency in the posterior right aspect that needs to be reexamined by your doctor. Return to the emergency department if you develop fevers, have any new or worsening symptoms or other concerns.
[2021-04-23 20:48] LABS: BASOPHILS # (AUTO) 0.1 10^3/uL (0.0-0.1); BASOPHILS % (AUTO) 1.1 %; EOSINOPHILS # (AUTO) 0.2 10^3/uL (0.0-0.7); EOSINOPHILS % (AUTO) 3.3 %; HCT - HEMATOCRIT 44.7 % (42.0-52.0); HGB - HEMOGLOBIN 14.9 g/dL (14.0-18.0); LYMPHOCYTES # (AUTO) 3.3 10^3/uL (1.5-3.5); LYMPHOCYTES % (AUTO) 49.1 %; MEAN CORPUSCULAR HEMOGLOBIN 33.1 pg (27.0-31.0); MEAN CORPUSCULAR HGB CONC 33.3 g/dL (32.0-36.0); MEAN CORPUSCULAR VOLUME 99.3 fL (80.0-94.0); MONOCYTES # (AUTO) 0.7 10^3/uL (0.0-1.0); MONOCYTES % (AUTO) 10.2 %; NEUTROPHILS # (AUTO) 2.4 10^3/uL (1.5-6.6); NEUTROPHILS % (AUTO) 36.1 %; PLT - PLATELET COUNT 151 10^3/uL (130-450); RED CELL DISTRIBUTION WIDTH 12.3 % (12.0-15.0); WHITE BLOOD COUNT 6.6 x10^3/uL (4.8-10.8)
[2021-04-23 21:01] LABS: ALBUMIN 3.8 g/dL (3.2-5.5); ALBUMIN/GLOBULIN RATIO 1.8 (1.0-2.2); BILIRUBIN,TOTAL 0.9 mg/dL (0.2-1.0); CALCIUM 8.4 mg/dL (8.5-10.3); CREATININE 0.9 mg/dL (0.6-1.2); POTASSIUM 4.3 mmol/L (3.5-5.0); TOTAL PROTEIN 5.9 g/dL (6.7-8.2)
[2021-04-23] MEDS ORDERED: IOPAMIDOL-300 100 ML VIAL ONE (21:31)
[2021-04-23] MEDS ORDERED: IOPAMIDOL-300 100 ML VIAL IVP ONE (21:45)
--- NOTE | 2021-04-23 22:42 | CT Report ---
PROCEDURE: Abdomen/Pelvis W INDICATIONS: Abdominal pain, acute, nonlocalized CONTRAST: IV CONTRAST: Isovue 300 ml: 100 PO CONTRAST: *NO PO CONTRAST TECHNIQUE: After the administration of 100 mL contrast, 5 mm thick sections acquired from the diaphragms to the symphysis. 5 mm thick coronal and sagittal reformats were acquired. For radiation dose reduction, t he following was used: automated exposure control, adjustment of mA and/or kV according to patient s ize. COMPARISON: None. FINDINGS: Image quality: Excellent. ABDOMEN: Lung bases: Lung bases are clear. Heart size is normal. Solid organs: Liver and spleen are normal in size and enhancement. The gallbladder is collapsed. Gavin iary system is non dilated. Pancreas enhances normally. No adrenal nodules. Kidneys demonstrate no rmal size and enhancement, without hydronephrosis. Peritoneum and bowel: Bowel loops demonstrate normal wall thickness and caliber. No free fluid or a ir. The appendix is not identified. Nodes and vessels: No retroperitoneal or mesenteric adenopathy by size criteria. The aorta has ather osclerotic calcifications with no aneurysmal dilatation. Miscellaneous: No ventral hernias. PELVIS: Genitourinary: Bladder wall thickness is normal. Miscellaneous: No inguinal hernias or adenopathy. Bones: There are multilevel degenerative changes. No suspicious bony lesions. No vertebral body com pression fractures. IMPRESSION: 1. No acute abdominal or pelvic abnormality. 2. The appendix is not identified and therefore acute appendicitis cannot be completely excluded, how ever there are no secondary signs of acute appendicitis. Please correlate clinically and follow-up as appropriate. Reviewed by: Gilberto Andrea on 04/23/2021 10:41 PM PDT Approved by: Gilberto Andrea on 04/23/2021 10:41 PM PDT Station ID: [id number]
[2021-04-23 23:05] VITALS: BP 172/86
== END 2021-04-23 23:55 | disposition home or self-care (01) ==
LOC: ED 19:30
DX: R10.2 Pelvic and perineal pain (principal); I10 Essential (primary) hypertension
CPT/HCPCS: 36415; 74177; 80053; 81003; 83690; 85025; 99283; 99284; Q9967; 81001; 87086

== ENCOUNTER 2022-07-23 12:31 | Outpatient (CLI) | payer OTHER | END 2022-07-23 12:32 | disposition home or self-care (01) | LOC: DI 12:31 | PROVIDERS: ATTEND Physical Medicine & Rehabilitation Spinal Cord Injury Medicine | DX: I35.0 Nonrheumatic aortic (valve) stenosis (principal); I35.1 Nonrheumatic aortic (valve) insufficiency; I51.7 Cardiomegaly; G82.50 Quadriplegia, unspecified | CPT/HCPCS: 93306 ==

== ENCOUNTER 2022-08-20 14:25 | Emergency (ER) | payer MEDICARE, OTHER ==
[2022-08-20 15:21] LABS: BASOPHILS % (AUTO) 0.6 %; EOSINOPHILS # (AUTO) 0.1 10^3/uL (0.0-0.7); EOSINOPHILS % (AUTO) 1.3 %; HCT - HEMATOCRIT 43.3 % (42.0-52.0); HGB - HEMOGLOBIN 13.9 g/dL (14.0-18.0); LYMPHOCYTES # (AUTO) 2.3 10^3/uL (1.5-3.5); MEAN CORPUSCULAR HEMOGLOBIN 31.2 pg (27.0-31.0); MEAN CORPUSCULAR HGB CONC 32.1 g/dL (32.0-36.0); MEAN CORPUSCULAR VOLUME 97.1 fL (80.0-94.0); MONOCYTES # (AUTO) 0.4 10^3/uL (0.0-1.0); MONOCYTES % (AUTO) 6.2 %; NEUTROPHILS # (AUTO) 3.5 10^3/uL (1.5-6.6); NEUTROPHILS % (AUTO) 55.3 %; PLT - PLATELET COUNT 235 10^3/uL (130-450); RED BLOOD COUNT 4.46 10^6/uL (4.70-6.10); RED CELL DISTRIBUTION WIDTH 12.8 % (12.0-15.0); WHITE BLOOD COUNT 6.3 x10^3/uL (4.8-10.8)
[2022-08-20 15:32] LABS: ALBUMIN 3.5 g/dL (3.2-5.5); ALBUMIN/GLOBULIN RATIO 1.1 (1.0-2.2); BILIRUBIN,TOTAL 0.6 mg/dL (0.2-1.0); CALCIUM 8.8 mg/dL (8.5-10.3); CREATININE 0.8 mg/dL (0.6-1.2); POTASSIUM 4.2 mmol/L (3.5-5.0); TOTAL PROTEIN 6.8 g/dL (6.7-8.2)
[2022-08-20] MEDS ORDERED: oxyCODONE 5 MG TABLET PO STA (15:50)
--- NOTE | 2022-08-20 15:53 | ED Physician Documentation ---
PD HPI BACK PAIN - Stated complaint Stated Complaint: ABD PX/RIB PX - Chief complaint Chief Complaint: Back Pain - History obtained from History obtained from: Patient, Family - Additional information Additional information: 67-year-old gentleman with history of incomplete spinal cord injury, he always runs on the hypotensive side and note made of his blood pressure today and he says that is normal for him. About a week and a half ago he was up on a ladder noting that he should know better. "I had to do something before my got home as she would have told me not to." He fell a few feet, landed on his right chest and abdomen on some rocks and then the ladder came down and hit him on the left upper quadrant of his abdomen. He is sure he broke some ribs on the right but that is getting better, but he has persistent twisting internal abdominal pain that he is worried about. Review of Systems Ten Systems: 10 systems reviewed and negative Constitutional: denies: Fever, Chills Cardiac: reports: Chest pain / pressure. denies: Palpitations Respiratory: denies: Dyspnea, Cough PD PAST MEDICAL HISTORY - Past Medical History Cardiovascular: Hypertension - Past Surgical History Past Surgical History: No - Present Medications Home Medications: Ambulatory Orders Medication Instructions Recorded Confirmed Baclofen 10/25/20 FLUoxetine [PROzac] 10/25/20 Gabapentin [Neurontin] 800 mg PO 10/25/20 Sulfamethox/Trimeth 800/160 1 each PO BID #14 tablet 10/25/20 [Bactrim Ds 800/160] Tamsulosin [Flomax] 10/25/20 polyethylene glycoL 3350 [Miralax] 17 gm PO DAILY PRN #1 bottle 10/25/20 Oxycodone HCl/Acetaminophen 1 - 2 each PO Q6H PRN #20 tablet 08/20/22 [Percocet 5-325 mg Tablet] - Allergies Allergies/Adverse Reactions: Allergies Allergy/AdvReac Type Severity Reaction Status Date / Time No Known Drug Allergies Allergy Verified 08/20/22 14:54 - Social History Does the pt smoke?: No Smoking Status: Never smoker Does the pt drink ETOH?: Yes Does the pt have substance abuse?: No - Immunizations Immunizations are current?: Yes - POLST Patient has POLST: No PD ED PE NORMAL - Vitals Vital signs reviewed: Yes - General General: Alert and oriented X 3, No acute distress - HEENT HEENT: PERRL, EOMI - Neck Neck: Supple, no meningeal sign, No bony TTP - Cardiac Cardiac: RRR, No murmur - Respiratory Respiratory: No respiratory distress, Clear bilaterally - Abdomen Abdomen: Other (He has a large bruise over the right side spanning the chest and abdomen with tenderness over the inferior ribs and mild right upper quadrant tenderness. No left upper quadrant tenderness.) - Back Back: No CVA TTP, No spinal TTP - Derm Derm: Normal color, Warm and dry - Extremities Extremities: No edema, No calf tenderness / cord - Neuro Neuro: Alert and oriented X 3, Normal speech Results - Vitals Vitals: Vital Signs - 24 hr 08/20/22 14:48 Temperature 36.7 C Heart Rate 71 Respiratory 16 Rate Blood Pressure 93/52 L O2 Saturation 97 Oxygen O2 Source Room air - Labs Labs: Laboratory Tests 08/20/22 08/20/22 15:14 15:14 WBC 6.3 RBC 4.46 L Hgb 13.9 L Hct 43.3 MCV 97.1 H MCH 31.2 H MCHC 32.1 RDW 12.8 Plt Count 235 MPV 10.0 Neut # (Auto) 3.5 Lymph # (Auto) 2.3 Day # (Auto) 0.4 Eos # (Auto) 0.1 Baso # (Auto) 0.0 Absolute Nucleated RBC 0.00 Nucleated RBC % 0.0 Sodium 136 Potassium 4.2 Chloride 100 L Carbon Dioxide 26 Anion Gap 10.0 BUN 19 Creatinine 0.8 Estimated GFR (MDRD) 96 Glucose 119 H Calcium 8.8 Total Bilirubin 0.6 AST 17 ALT 20 Alkaline Phosphatase 110 Total Protein 6.8 Albumin 3.5 Globulin 3.3 Albumin/Globulin Ratio 1.1 Lipase 40 PD MEDICAL DECISION MAKING - ED course ED course: This is a gentleman with history of AN incomplete cervical spinal cord injury who presents about 10 days after a significant injury to the chest and abdomen w ith persistent abdominal pain and improving chest pain. He had a CT scan of his chest and abdomen, note made that contrast infiltrated in the right upper extremity during this, and this was reexamined and with mild swelling but no warmth or redness, no limited range of motion no sign of compartment syndrome. The imaging did show significant injuries including 7 right-sided rib fractures with pneumomediastinum, a small hemothorax, and subcutaneous emphysema. This was discussed by phone with our on-call surgeon, Dr. Vega and I agree with him that given the time course, 10 days after injury, no specific therapy is needed. Patient was advised not to climb ladders anymore. Departure - Departure Disposition: 01 Home, Self Care Clinical Impression: Pneumomediastinum Multiple rib fractures Qualifiers: Encounter type: initial encounter Fracture type: closed Laterality: right Qualified Code(s): S22.41XA - Multiple fractures of ribs, right side, initial encounter for closed fracture Abdominal wall contusion Qualifiers: Encounter type: initial encounter Qualified Code(s): S30.1XXA - Contusion of abdominal wall, initial encounter Condition: Good Record reviewed to determine appropriate education?: Yes Instructions: ED Fx Rib Prescriptions: Oxycodone HCl/Acetaminophen [Percocet 5-325 mg Tablet] 1 - 2 each PO Q6H PRN #20 tablet PRN Reason: pain Comments: As discussed, you do have significant injuries from the fall from the ladder including 7 right-sided rib fractures, a small to moderate amount of bleeding inside of your chest and air around your heart. Given the time course though, you have tolerated this very well and it is unlikely that she would have any serious complications at this point, about 10 days after the injury. I sent a prescription for extra Percocet up to [facility] in [place]. Call your doctor to arrange a follow-up appointment, make the next available appointment. In the interim, return anytime if worse or if new symptoms develop. I am prescribing a short course of narcotic pain medication for you. These are potentially dangerous and addictive medications that should be used carefully. These medications may constipate you. Take an adtq-xik-noiikeg stool softener (docusate) twice daily with plenty of water while taking these medications. If you go 24 hours without a bowel movement, take [id number] miralax, per package instructions. Do not drink or drive while taking these medications. If you received narcotic or sedating medications while in the emergency department, do not drive for 24 hours. Store this medication in a safe, secure place and out of reach of children. It is a violation of federal law to give or sell this medication to another person or to use in a manner other than prescribed. The ED will not refill narcotic prescriptions, including prescriptions lost or stolen. To dispose of unwanted medications: 1. [facility] at [address] in [place] has a medication drop box. They accept prescription medications (in pill form) Wednesday through Wednesday 9:00 a.m. to 5:00 p.m. 2. The [facility] [place] [employer] accepts prescription medications (in pill form only) for disposal year round. Call for more information. 3. Contact the [facility] for the next [facility] sponsored prescription drug collection event. , [phone], or [phone]; Note that many narcotic pain relievers also contain Tylenol/acetaminophen. Please ensure that your total dose of acetaminophen from all sources does not exceed 3 g (3000 mg) per day.
[2022-08-20] MEDS ORDERED: iohexoL-300 100 ML VIAL ONE (15:57)
[2022-08-20] MEDS ORDERED: iohexoL-300 100 ML VIAL IVP ONE (16:40)
--- NOTE | 2022-08-20 16:40 | CT Report ---
PROCEDURE: ABDOMEN/PELVIS W INDICATIONS: IV only, chast/abd trauma CONTRAST: 100ml omni 300 TECHNIQUE: After the administration of contrast, 5 mm thick sections acquired from the diaphragms to the sym physis. 5 mm thick coronal and sagittal reformats were acquired. For radiation dose reduction, the following was used: automated exposure control, adjustment of mA and/or kV according to patient size . COMPARISON: None. FINDINGS: Image quality: Excellent. ABDOMEN: Lung bases: Multiple right-sided rib fractures. There is a moderate-sized right pleural effusion with compressive right basilar atelectasis. Pneumomediastinum is seen in the anterior mediastinum and is partially visualized. Please see separately dictated CT of the chest. Please see chest CT for additio nal findings. Solid organs: Liver and spleen are normal in size and enhancement. Gallbladder is normal. Biliary system is non dilated. Pancreas enhances normally. No adrenal nodules. Kidneys demonstrate normal size and enhancement, without hydronephrosis. Peritoneum and bowel: Bowel loops demonstrate normal wall thickness and caliber. No free fluid or a ir. Nodes and vessels: No retroperitoneal or mesenteric adenopathy by size criteria. Aorta and inferior vena cava are normal in size. Miscellaneous: No ventral hernias. PELVIS: Genitourinary: Bladder wall thickness is normal. Miscellaneous: No inguinal hernias or adenopathy. Bones: Multilevel degenerative changes. No fracture. No suspicious bony lesions. No vertebral body compression fractures. IMPRESSION: 1. Multiple right-sided rib fractures. See separate chest CT dictation. 2. Pneumomediastinum in the anterior mediastinum. 3. Right basilar atelectasis and moderate-sized right pleural effusion. Reviewed by: Gilberto Andrea on 08/20/2022 4:38 PM PST Approved by: Gilberto Andrea on 08/20/2022 4:38 PM PST Station ID: [id number]
--- NOTE | 2022-08-20 16:46 | CT Report ---
PROCEDURE: CHEST W INDICATIONS: IV only, chast/abd trauma CONTRAST:100ml omni 300 TECHNIQUE: After the administration of intravenous contrast, 1 mm axial images were acquired from the pulmonary apices through the posterior costophrenic angles. Axial 5 mm soft tissue kernel reconstructions were performed as well as 8 mm axial MIP and coronal and sagittal 5 mm reformations. For radiation dose reduction, the following was used: automated exposure control, adjustment of mA and/or kV according to patient size. COMPARISON: None. FINDINGS: Image quality: Excellent. Lungs and pleura: Right moderate-sized pleural effusion and adjacent atelectasis. A component of hemo thorax is a consideration, however the density measures 12 Hounsfield units consistent with a simple pleural effusion. Mediastinum heart size is normal. There is pneumomediastinum in the anterior mediastinum. No mediasti nal or hilar adenopathy by size criteria. The coronary arteries have atherosclerotic calcifications. Thoracic aorta demonstrates atherosclerotic calcifications. There is aneurysmal dilatation. Esophagu s is normal in caliber. No hiatal hernia. Bones and chest wall: Fracture of the right third through ninth ribs. Subcutaneous emphysema along th e right chest wall extending into the axillary soft tissues. No vertebral body compression fractures. No axillary or supraclavicular adenopathy by size criteria. The thyroid is normal in size and ther e are no incidental findings. Abdomen: See separately dictated CT of the abdomen and pelvis. IMPRESSION: 1. Multiple right-sided rib fractures. 2. Subcutaneous emphysema along the right lateral chest wall. 3. Pneumomediastinum. 4. Right moderate-sized pleural effusion with adjacent compressive atelectasis. 5. Coronary artery calcifications. Reviewed by: Gilberto Andrea on 08/20/2022 4:44 PM PST Approved by: Gilberto Andrea on 08/20/2022 4:44 PM PST Station ID: [id number]
[2022-08-20 17:08] VITALS: BP 102/60
== END 2022-08-20 17:06 | disposition home or self-care (01) ==
LOC: ED 14:25
DX: J98.2 Interstitial emphysema (principal); S22.41XA Multiple fractures of ribs, right side, initial encounter for closed fracture; S30.1XXA Contusion of abdominal wall, initial encounter
CPT/HCPCS: 36415; 71260; 74177; 80053; 83690; 85025; 99284; A9270; Q9967

== ENCOUNTER 2023-02-27 14:11 | Outpatient (CLI) | payer MEDICARE, OTHER | END 2023-02-27 23:59 | disposition EMS.NT | LOC: EMS 14:11 | DX: R42 Dizziness and giddiness (principal); I95.9 Hypotension, unspecified ==

== ENCOUNTER 2023-09-16 17:13 | Emergency (ER) | payer MEDICARE, OTHER ==
[2023-09-16] MEDS ORDERED: cefTRIAXone 1 GM VIAL IM STA (19:16)
[2023-09-16] MEDS ORDERED: LIDOCAINE 1% 2 ML VIAL MC ONE (19:16)
[2023-09-16 19:21] LABS: BILIRUBIN,URINE NEGATIVE (NEGATIVE); GLUCOSE, URINE (UA) NEGATIVE (NEGATIVE); KETONES,URINE (UA) TRACE mg/dL (NEGATIVE); LEUKOCYTE ESTERASE, URINE MODERATE (NEGATIVE); NITRITE,URINE POSITIVE (NEGATIVE); OCCULT BLOOD,URINE SMALL (NEGATIVE); PH,URINE 5.5 PH (5.0-7.5); PROTEIN,URINE TRACE mg/dL (NEGATIVE); UROBILINOGEN,URINE 0.2 (NORMAL) E.U./dL (NORMAL)
[2023-09-16 19:23] LABS: CLARITY,URINE CLOUDY (CLEAR)
--- NOTE | 2023-09-16 19:28 | ED Physician Documentation ---
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 He states that he has had some recurrent UTIs. He took a home UTI test today that showed a UTI. No fevers. No chills. No back pain. No flank pain. No recent antibiotics. Does not self cath. Review of Systems Constitutional: denies: Fever, Chills GI: denies: Vomiting, Diarrhea : reports: Dysuria, Frequency, Hesitancy Skin: denies: Rash Musculoskeletal: denies: Neck pain, Back pain PD PAST MEDICAL HISTORY - Past Medical History Past Medical History: Yes Cardiovascular: Hypertension - Past Surgical History Past Surgical History: No - Present Medications Home Medications: Ambulatory Orders Medication Instructions Recorded Confirmed Baclofen 10/25/20 FLUoxetine [PROzac] 10/25/20 Gabapentin [Neurontin] 800 mg PO 10/25/20 Sulfamethox/Trimeth 800/160 1 each PO BID #14 tablet 10/25/20 [Bactrim Ds 800/160] Tamsulosin [Flomax] 10/25/20 polyethylene glycoL 3350(BULK) 17 gm PO DAILY PRN #1 bottle 10/25/20 [Miralax] Oxycodone HCl/Acetaminophen 1 - 2 each PO Q6H PRN #20 tablet 08/20/22 [Percocet 5-325 mg Tablet] Cefpodoxime Proxetil [Vantin] 100 mg PO Q12H #20 tablet 09/16/23 - Allergies Allergies/Adverse Reactions: Allergies Allergy/AdvReac Type Severity Reaction Status Date / Time No Known Drug Allergies Allergy Verified 09/16/23 17:17 - Social History Does the pt smoke?: No Smoking Status: Never smoker Does the pt drink ETOH?: Yes Does the pt have substance abuse?: No - Immunizations Immunizations are current?: Yes - POLST Patient has POLST: No PD ED PE NORMAL - Vitals Vital signs reviewed: Yes - General General: Alert and oriented X 3, No acute distress - HEENT HEENT: Moist mucous membranes - Neck Neck: Supple, no meningeal sign - Cardiac Cardiac: RRR, Strong equal pulses - Respiratory Respiratory: No respiratory distress, Clear bilaterally - Abdomen Abdomen: Soft, Non tender, Non distended - Back Back: No CVA TTP, No spinal TTP - Derm Derm: Warm and dry - Neuro Neuro: Alert and oriented X 3 - Psych Psych: Normal mood, Normal affect Results - Vitals Vitals: Vital Signs - 24 hr 09/16/23 09/16/23 17:17 19:38 Temperature 36.5 C Heart Rate 62 56 L Respiratory 16 16 Rate Blood Pressure 130/50 L 114/40 L O2 Saturation 98 94 Oxygen O2 Source Room air - Labs Labs: Laboratory Tests 09/16/23 19:01 Urine Color YELLOW Urine Clarity CLOUDY Urine pH 5.5 Ur Specific [place] 1.025 Urine Protein TRACE Urine Glucose (UA) NEGATIVE Urine Ketones TRACE Urine Occult Blood SMALL H Urine Nitrite POSITIVE H Urine Bilirubin NEGATIVE Urine Urobilinogen 0.2 (NORMAL) Ur Leukocyte Esterase MODERATE H Urine RBC 6-10 H Urine WBC >25 H Ur Squamous Epith Cells RARE Squamous Urine Bacteria Moderate H Urine Mucus Moderate Strands Ur Microscopic Review INDICATED Urine Culture Comments INDICATED PD Medical Decision Making - ED course Complexity details: reviewed results, re-evaluated patient, considered differential, d/w patient ED course: Patient with a UTI. Given Rocephin here. Will place on antibiotics for home. He is well-appearing, nontoxic. Afebrile. No evidence of sepsis. No flank pain to suggest pyelonephritis. No rectal pain to suggest prostatitis. Patient counseled regarding signs and symptoms for which I believe and urgent re- evaluation would be necessary. Patient with good understanding of and agreement to plan and is comfortable going home at this time This document was made in part using voice recognition software. While efforts are made to proofread this document, sound alike and grammatical errors may occur. Departure - Departure Disposition: Home, Self Care Clinical Impression: UTI (urinary tract infection) Qualifiers: Urinary tract infection type: acute cystitis Hematuria presence: without hematuria Qualified Code(s): N30.00 - Acute cystitis without hematuria Condition: Good Instructions: ED UTI Cystitis Male Follow-Up: MANOHAR CARD [Primary Care Provider] - Within 1 week Prescriptions: Cefpodoxime Proxetil [Vantin] 100 mg PO Q12H #20 tablet Comments: Your prescription was sent to [facility] in [place]. Please follow-up with your doctor for further care. Please return if you worsen. You were given a dose of Rocephin today. Your urine will be sent for culture. If an antibiotic change is needed, we will call you for an antibiotic change. Make sure you are drinking plenty of water at home. Please follow-up with urology as scheduled for further care. Discharge Date/Time: 09/16/23 19:39
[2023-09-16 19:43] VITALS: BP 114/40; O2SAT 94
[2023-09-16 19:50] LABS: BACTERIA,URINE Moderate /HPF (None Seen); MUCUS,URINE Moderate Strands; SQUAMOUS EPITHELIAL CELL,UR RARE Squamous (<= Few); WBC,URINE >25 /HPF (0-3)
== END 2023-09-16 19:39 | disposition home or self-care (01) ==
LOC: ED 17:13
DX: N30.00 Acute cystitis without hematuria (principal); I10 Essential (primary) hypertension
CPT/HCPCS: 81001; 81003; 87086; 87181; 96372; 99283

== ENCOUNTER 2023-11-19 08:00 | Outpatient (CLI) | payer MEDICARE, OTHER | END 2023-11-19 23:59 | disposition home or self-care (01) | LOC: LAB 08:00 | PROVIDERS: ATTEND Nurse Practitioner | DX: N39.0 Urinary tract infection, site not specified (principal) | CPT/HCPCS: 87086; 87181 ==

== ENCOUNTER 2023-12-02 16:00 | Outpatient (CLI) | payer MEDICARE, OTHER | END 2023-12-02 16:15 | disposition home or self-care (01) | LOC: LAB.N 16:00 | PROVIDERS: ATTEND Family Medicine | DX: N39.0 Urinary tract infection, site not specified (principal) | CPT/HCPCS: 87086 ==